=== PATIENT | female | born 1950 | race Caucasian/White ===

== ENCOUNTER 2016-05-15 17:34 | Emergency (ER) | payer OTHER ==
[2016-05-15] MEDS ORDERED: NS 1,000 ML IV ONE (18:53)
[2016-05-15] MEDS ORDERED: KETOROLAC 30 MG/1 ML SDV ONE (19:30)
[2016-05-15] MEDS ORDERED: METOCLOPRAMIDE 10 MG/2 ML VIAL ONE (19:30)
[2016-05-15 20:20] VITALS: O2SAT 97
--- NOTE | 2016-05-15 20:57 | EDPHY ---
H & P Time Seen by Provider: 05/15/16 20:07 HPI/ROS: Chief complaint. Headache HPI. 65-year-old female history migraines presents with headache that began 730 this morning. It came up the back of her neck Ellis now is band tightness. No visual symptoms. No recent head injury or illness. No fever. No focal weakness or paresthesias. No vomiting or diarrhea ROS Constitutional. no fever/chills, no weakness Eyes. no problems with vision ENT. no sore throat, no nasal drainage Cardiovascular. no chest pain Respiratory. no shortness of breath, no cough Abdominal. no abdominal pain, no nausea/vomiting, no diarrhea . no problems urinating MS. no calf pain/swelling, no neck/back pain, no joint pain Skin. no rash Lymph. no swollen glands Neuro. Headache Past Medical/Surgical History: Migraines, coronary artery disease with stents, cholecystectomy, dyslipidemia Social History: Nonsmoker, no alcohol, Smoking Status: Never smoked Physical Exam: General Appearance: Alert well-developed female mild distress vital signs stable Eyes: Pupils equal and round no pallor or injection. ENT, Mouth: Mucous membranes are moist. Respiratory: There are no retractions, lungs are clear to auscultation. Cardiovascular: Regular rate and rhythm. Gastrointestinal: Abdomen is soft and nontender, no masses, bowel sounds normal. Neurological: Awake and alert, sensory and motor exams grossly normal. Skin: Warm and dry, no rashes. Musculoskeletal: Neck is supple nontender. Extremities symmetrical, full range of motion. Psychiatric: Patient is oriented X 3, there is no agitation. Constitutional: Initial Vital Signs Temperature (C) 36.4 C 05/15/16 17:44 Heart Rate 73 05/15/16 17:44 Respiratory Rate 16 05/15/16 17:44 Blood Pressure 167/91 H 05/15/16 17:44 O2 Sat (%) 95 05/15/16 17:44 O2 Delivery Mode Room Air Allergies/Adverse Reactions: hydrocodone Allergy (Verified 05/15/16 17:43) oxycodone Allergy (Verified 05/15/16 17:43) Sulfa (Sulfonamide Antibiotics) Allergy (Verified 05/15/16 17:43) Home Medications: Medication Instructions Recorded Crestor PO 07/30/15 Doxycycline Calcium PO 07/30/15 FENOFIBRATE PO 07/30/15 Plavix (RX) PO 07/30/15 Nasacort 12/01/15 Zyrtec 12/01/15 2 New Unknown Psych Meds 05/15/16 Medical Decision Making Procedures: IV Reglan, Benadryl, Toradol ED Course/Re-evaluation: Recheck at 8:55 p.m.--headache is gone. Patient neurologic Yfn intact. Patient feels well enough to go home. Patient and I discussed criteria for return importance of follow-up and further evaluation she expresses understanding and agreement Differential Diagnosis: Patient has a history of migraines this is typical migraine. It has been treated with migraine cocktail and symptoms have resolved. I have considered CVA, intracranial bleeding, meningitis as well. - Data Points Medications Given: Discontinued Medications Sodium Chloride (Ns) 1,000 mls @ 0 mls/hr IV ONCE ONE PRN Reason: Wide Open Stop: 05/15/16 18:54 Last Admin: 05/15/16 19:00 Dose: 1,000 mls Departure - Departure Disposition: Home, Routine, Self-Care Clinical Impression: Headache Qualifiers: Headache type: unspecified Headache chronicity pattern: acute headache Condition: Good Instructions: Migraine Headache (ED) Additional Instructions: Return for worsening symptoms. Follow up with Dr. Bahena in 1-2 days for continuing symptoms Referrals: FREYA BAHENA [Primary Care Provider] - 2-3 days, if not improved
[2016-05-15] MEDS ORDERED: METOCLOPRAMIDE 10 MG/2 ML VIAL IVP ONE (21:04)
[2016-05-15] MEDS ORDERED: KETOROLAC 30 MG/1 ML SDV IVP ONE (21:05)
[2016-05-15 21:09] VITALS: BP 141/91; PULSE 73; RESP 16; TEMP 97.9
== END 2016-05-15 21:09 | disposition home or self-care (01) ==
DX: R51 Headache (principal); I25.10 Atherosclerotic heart disease of native coronary artery without angina pectoris
CPT/HCPCS: 96361; 96374; 96375; 99284; J1200; J1885; J2765

== ENCOUNTER 2016-06-23 12:31 | Emergency (ER) | payer OTHER ==
[2016-06-23 12:39] VITALS: BP 112/90; PULSE 76; RESP 16; TEMP 97.5; O2SAT 95
--- NOTE | 2016-06-23 12:56 | EDPHY ---
H & P Stated Complaint: Injury to L hand HPI/ROS: CHIEF COMPLAINT: Fall, left hand pain HISTORY OF PRESENT ILLNESS: Patient was put on clothes yesterday evening when she tripped and fell. She landed on outward shaft left hand. She felt a sudden pop in onset of pain in the left ring and small finger and at the MCP joints associated with these. [id number] pain. It has been constant duration. Does not radiate. No pain in the ipsilateral wrist, forearm or elbow. No head or neck injury. No loss conscious. No injury elsewhere. Pain is worse with palpation and movement. Improved at rest. No other associated complaints or modifying factors. PRIOR ORTHO INJURIES: None ESTABLISHED ORTHOPEDIST: None REVIEW OF SYSTEMS: Ten systems reviewed and are negative unless otherwise noted in the HPI EXAMINATION General Appearance: Alert, no distress Cardiovascular: Pulses normal throughout. Symmetric radial pulses. Brisk cap refill Neurological: A&O, sensory symmetric, strength symmetric. Normal proprioception 2 point sensation intact. Skin: Warm and dry, no rash. Mild ecchymosis about the area of injury. No laceration. No abrasion. Extremities: Tenderness to palpation of the left hand over the 4th and 5th MCP joints. Flexion and extension are intact but painful, more so with flexion. No cyanosis or pallor. No laceration. No fluctuance. Neurovascular intact distal to the area of pain. Psychiatric: Mood and affect normal DIFFERENTIAL DIAGNOSES: Including but not limited to sprain, strain, fracture, hematoma, fracture dislocation MDM: 12:50 p.m. Fall on outstretched left hand. She has pain over the left 4th and 5th MCP joints. She is neuro intact. Range of motion is limited due to pain. X-rays pending. 2:00 p.m. X-ray reveals arthritic changes without any acute fracture dislocation. She remains neurovascular intact. I have informed of these findings. I will place her in an ulnar gutter for protection of the MCP joint until she can follow up with hand surgeon for definitive care. She is comfortable this plan and discharged home stable condition. ED Precautions: Worsening pain. Erythema, edema, cyanosis, pallor, paresthesia or anesthesia. SUPERVISION: This patient was independently evaluated without direct examination by the attending physician. Case was discussed with attending physician. Source: Patient Exam Limitations: No limitations - Personal History Current Tetanus Diphtheria and Acellular Pertussis (TDAP): Yes - Medical/Surgical History Hx Asthma: No Hx Chronic Respiratory Disease: No Hx Diabetes: No Hx Cardiac Disease: No Hx Renal Disease: No Hx Cirrhosis: No Hx Alcoholism: No Hx HIV/AIDS: No Hx Splenectomy or Spleen Trauma: No Other PMH: 4 weeks S/P GB. stents "veins to heart". Hyst. migraines in the past. Tubal ligation. Bunion - Social History Smoking Status: Never smoked Constitutional: Initial Vital Signs Temperature (C) 97.5 F 06/23/16 12:36 Heart Rate 76 06/23/16 12:36 Respiratory Rate 16 06/23/16 12:36 Blood Pressure 112/90 H 06/23/16 12:36 O2 Sat (%) 95 06/23/16 12:36 O2 Delivery Mode Room Air Allergies/Adverse Reactions: hydrocodone Allergy (Verified 05/15/16 17:43) oxycodone Allergy (Verified 05/15/16 17:43) Sulfa (Sulfonamide Antibiotics) Allergy (Verified 05/15/16 17:43) Home Medications: Medication Instructions Recorded Crestor PO 07/30/15 Doxycycline Calcium PO 07/30/15 FENOFIBRATE PO 07/30/15 Plavix (RX) PO 07/30/15 Zyrtec 12/01/15 Unkown Name Psych Med 06/23/16 Medical Decision Making - Diagnostics Imaging Results: Imaging Impressions Hand X-Ray 06/23/16 12:41 Impression: 1. No acute osseous abnormality seen right hand. 2. Underlying osteoarthritis suspected. 3. Calcifications along the anterior aspect of the third and fourth PIP joints are probably old. This could be related to underlying osteoarthritis versus ununited ossification center or previous chip or avulsion fractures. Departure - Departure Disposition: Home, Routine, Self-Care Clinical Impression: Hand sprain Qualifiers: Encounter type: initial encounter Laterality: left Qualified Code(s): S63.92XA - Sprain of unspecified part of left wrist and hand, initial encounter Condition: Good Instructions: Hand Sprain (ED) Additional Instructions: Wound care as discussed. Follow up with hand surgeon for definitive care. Referrals: NONE *PRIMARY CARE P,. [Primary Care Provider] - As per Instructions Arely Anand MD [Medical Doctor] - As per Instructions
== END 2016-06-23 14:31 | disposition home or self-care (01) ==
DX: S63.92XA Sprain of unspecified part of left wrist and hand, initial encounter (principal); W01.0XXA Fall on same level from slipping, tripping and stumbling without subsequent striking against object, initial encounter